=== PATIENT | male | born 1995 | race Caucasian/White ===

== ENCOUNTER → 2019-01-12 17:03 | Outpatient (CLI) | payer OTHER, SELFPAY ==
--- NOTE | 2019-01-12 17:11 | RAD_ITS ---
STUDY: X-RAY - UNILATERAL RIBS ( LEFT ) WITH CHEST REASON FOR EXAM: Male, 23 years old. Left rib pain, chest pain TECHNIQUE - RIBS: 5 view(s) of the ribs. TECHNIQUE - CHEST: PA chest COMPARISON: None. FINDINGS - RIBS: Normal visualized ribs without a demonstrated fracture. FINDINGS - CHEST: The lungs are clear and expanded. There is no demonstrated pleural abnormality. Normal size heart. Normal mediastinum and rolando. Normal visualized pulmonary arteries. Normal visualized aortic arch and descending thoracic aorta. There is mild upper thoracic dextroscoliosis.. Normal visualized ribs, clavicles, and shoulders. There is no demonstrated abnormality of the visualized soft tissue structures of the upper abdomen. RAD/Ribs Uni Min 3V w/PA Chest IMPRESSION: RIBS: Normal x-ray examination of the ribs. CHEST: Normal x-ray examination of the chest. Mild upper thoracic dextroscoliosis Electronically Signed: Sachin Jeff, at 17:47 EDT Tel , Service support ,
== END ==
PROVIDERS: Family Provider Physician Assistant; PCP Physician Assistant; Referring Provider Physician Assistant; Visit Provider Physician Assistant
DX: R07.81 Pleurodynia (principal)
CPT/HCPCS: 71101

== ENCOUNTER 2019-03-14 12:18 | Emergency (ER) | payer OTHER, SELFPAY ==
[2019-03-14 12:19] VITALS: BP 168/92; PULSE 76; RESP 18; TEMP 36.8; O2SAT 99; BMI 26.4
--- NOTE | 2019-03-14 12:53 | RAD_ITS ---
STUDY: X-RAY CHEST REASON FOR EXAM: Male, 23 years old. Chest pain TECHNIQUE: Single AP portable view of the chest. COMPARISON: 01/12/2019. FINDINGS: The lungs are clear and expanded. There is no demonstrated pleural abnormality. Normal size heart. Normal mediastinum and rolando. Normal visualized pulmonary arteries. Normal visualized aortic arch and descending thoracic aorta. Normal visualized thoracic spine. Normal visualized ribs, clavicles, and shoulders. There is no demonstrated abnormality of the visualized soft tissue structures of the upper abdomen. RAD/Chest 1 View (Portable) IMPRESSION: Normal x-ray examination of the chest. No acute intrathoracic process. Electronically Signed: Yomi Torres MD at 13:27 EDT Tel [phone], Service support ,
--- NOTE | 2019-03-14 12:54 | EKG12_ITS ---
Test Reason : CP Blood Pressure : / mmHG Vent. Rate : 075 BPM Atrial Rate : 075 BPM P-R Int : 146 ms QRS Dur : 106 ms QT Int : 374 ms P-R-T Axes : 055 077 041 degrees QTc Int : 417 ms Normal sinus rhythm Incomplete right bundle branch block Borderline ECG Confirmed by JAYANT MENDEZ ([id number]), international editorial producer MAU SAMUEL ([id number]) on 03/20/2019 2:21:14 PM Referred By: Confirmed By:JAYANT MENDEZ
[2019-03-14 13:00] LABS: Absolute Lymphocyte Count 1.91 X10^3/uL (0.83-4.51); Absolute Neutrophil Count 6.1 X10^3/uL (2.0-7.7); Basophil# 0.02 X10^3/uL; Basophil% 0.2 % (0-1); Eosinophil# 0.15 X10^3/uL; Eosinophils% 1.7 % (0-5); Hematocrit 45.6 % (40-54); Hemoglobin 15.8 g/dL (13.0-16.5); Lymphocyte # 1.91 X10^3/ul (4.0); Lymphocyte % 21.1 % (19-41); Mean Corp Hgb Conc 34.6 g/dL (32-36); Mean Corpuscular Hgb 30.2 pg (27.0-32.0); Mean Corpuscular Volume 87.2 fL (80-94); Mean Platelet Vol. 9.7 fl (6.2-12.0); Monocyte# 0.83 X10^3/uL; Monocyte% 9.2 % (0-10); NRBC Flagged by Analyzer 0 % (0-5); Neutrophil # 6.14 X10^3/uL (2.7-7.7); Neutrophil % 67.6 % (47-70); Platelet Count 263 K/mm3 (150-450); RBC Distribution Width SD 41.4 fl (35.1-43.9); Red Blood Count 5.23 M/mm3 (4.6-6.2); White Blood Count 9.1 K/mm3 (4.4-11.0)
[2019-03-14 13:04] VITALS: BP 133/94; PULSE 73; RESP 19; O2SAT 98
--- NOTE | 2019-03-14 13:05 | NURSING ---
NO OLD EKG TO OBTAIN
[2019-03-14] MEDS: Aspirin 81 MG TAB.CHEW 324 MG PO (13:06)
[2019-03-14 13:13] LABS: Anion Gap 5 (5-15); BUN 11 mg/dL (7-18); BUN/Creat Ratio 11.9 RATIO (10-20); Calcium,Total 9.4 mg/dL (8.5-10.1); Chloride 107 mmol/L (98-107); Creatinine, Serum 0.93 mg/dL (0.70-1.30); EST Glomerular Filtration Rate 108 mL/min (>60); Est Glom Filt Rate - Afr Amer 130 mL/min (>60); Estimated Creatinine Clearance 136.75 ml/min; Glucose 107 mg/dL (74-106); Potassium 3.4 mmol/L (3.5-5.1); Sodium Level 139 mmol/L (136-145)
[2019-03-14 14:10] VITALS: BP 124/74; PULSE 66; RESP 19; O2SAT 99
--- NOTE | 2019-03-14 14:22 | ED.DCSUM_ITS ---
- ER Visit Summary Date of Service: 03/14/19 Chief Complaint: Chest pain History of Present Illness: The patient is a 23 M who presents with chest pain that began last night. Patient states he was snorting cocaine last night when the pain began. Patient states the pain is been waxing and waning throughout the day. Patient describes as aching. Patient states the pain is over the substernal area but radiates into his left arm. Patient states nothing makes it better or worse. Patient states he had some shortness of breath and broke out into a sweat but currently denies any diaphoresis or dyspnea. Patient states he felt lightheaded and felt like he was going to pass out immediately after snorting the cocaine. Patient states he felt like his heart was racing after that. Patient states he had some tingling in his left toes and some pain in his left scapular area. Patient denies any nausea or vomiting. Patient denies any cardiac or PE risk factors. Physical Examination: Vital signs are stable. Patient is afebrile. Patient is in no acute distress. Oral mucosa is pink and moist. Neck is supple. Trachea is midline. There is no JVD noted. Heart was regular rate and rhythm. Lungs are clear and equal bilateral. Abdomen is soft. Bowel sounds are normal. Ther e is no tenderness. There is no guarding noted. Skin is warm dry. Cranial nerves II through XII are intact. There are no focal motor or sensory deficits noted. The remaining physical exam is within normal limits. Test Results: EKG showed normal sinus rhythm with a rate of 75. There is an incomplete right bundle branch block pattern. There are no acute ST or T wave changes. CBC, basic metabolic profile, and troponin were obtained and were normal. Portable chest x-ray was obtained. There is no acute cardiopulmonary process. Emergency Department Course and Treatment: Patient was given aspirin here. Patient is feeling better on reevaluation. Patient has a HEART score of 1. Patient was advised this is low risk for acute cardiac event. Patient was instructed to stop using cocaine. Patient was instructed to follow-up with his primary care physician in 5 to 7 days. Patient was instructed return if worse in any way. Patient understood and was agreeable with the plan. All questions were answered. Disposition: Discharge home Impression: Chest pain This note was generated with Wibki dictation software. It may contain incorrect words, spelling, and punctuation that were not noted in review of the chart prior to signing ED Disposition - Plan for ED Patient: Disposition: Home or Assisted Living Diagnosis: Chest pain Instructions: CHEST PAIN, Uncertain Cause Referrals: Care Physician,No Primary [Primary Care Provider] - Devon Berry MD [NON-STAFF] - 5-7 Days
[2019-03-14 14:41] VITALS: BP 130/78; PULSE 82; RESP 17; O2SAT 100
== END 2019-03-14 14:44 | disposition home or self-care (01) ==
PROVIDERS: Emergency Provider Emergency Medicine
DX: R07.9 Chest pain, unspecified (principal); R06.02 Shortness of breath; M54.2 Cervicalgia; F17.290 Nicotine dependence, other tobacco product, uncomplicated
CPT/HCPCS: 71045; 80048; 84484; 85025; 93005; 99285; A4216

== ENCOUNTER 2024-11-05 18:45 | Emergency (ER) | payer OTHER, SELFPAY ==
[2024-11-05] VITALS (9 sets, daily range): BP systolic 128–161; BP diastolic 67–129; PULSE 70–118; RESP 15–24; TEMP 36–36.6; O2SAT 20–100
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
[2024-11-05] MEDS: Ondansetron 4 MG/2 ML Vial IV (19:12)
[2024-11-05] MEDS: Morphine 4 MG/ML Syringe IV (19:12)
--- NOTE | 2024-11-05 19:29 | CT_ITS ---
PROCEDURE: SPINE CERVICAL WITHOUT CONTRAS 11/05/2024 REASON FOR EXAM: Pain, trauma TECHNIQUE: Cervical spine CT without contrast. Coronal and Sagittal reconstruction series were provided. One or more dose reduction techniques were used (e.g., Automated exposure control, adjustment of the mA and/or kV according to patient size, use of iterative reconstruction technique COMPARISON: None FINDINGS: Vertebral body heights are maintained. Negative for fracture or traumatic subluxation. No significant degenerative changes. Lung apices are clear. No paraspinal mass. CT/Spine Cervical without Contras IMPRESSION: No acute osseous abnormality. Reading Location: [facility]
--- NOTE | 2024-11-05 19:29 | CT_ITS ---
PROCEDURE: BRAIN/HEAD WITHOUT CONTRAST 11/05/2024 REASON FOR EXAM: Pain, trauma TECHNIQUE: Head CT without intravenous contrast. Coronal and Sagittal reconstruction series were provided. One or more dose reduction techniques were used (e.g., Automated exposure control, adjustment of the mA and/or kV according to patient size, use of iterative reconstruction technique. COMPARISON: None FINDINGS: No evidence of acute intracranial hemorrhage, midline shift or mass effect. No definite CT evidence of acute territorial cortical infarction. No hydrocephalus. Cerebral volume is preserved. No depressed calvarial fracture. Minimal ethmoid sinus mucosal thickening. Mastoid air cells are clear. CT/Brain/Head without Contrast IMPRESSION: No acute intracranial abnormality. Reading Location: [facility]
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
--- NOTE | 2024-11-05 19:30 | RAD_ITS ---
EXAM: Left elbow radiographs CLINICAL HISTORY: Pain COMPARISON: None TECHNIQUE: Three views of the left elbow FINDINGS: See impression RAD/Elbow min 3 Views IMPRESSION: Negative for acute fracture or malalignment. No significant joint effusion. Reading Location: [facility]
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
[2024-11-05] MEDS: fentaNYL 100 MCG/2 ML Ampul 50 MCG IV (20:22)
[2024-11-05] MEDS: Propofol 200 MG/20 ML Vial IV BOLUS (20:22)
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
[2024-11-05] MEDS: oxyCODONE 5 MG Tablet PO (22:17)
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
== END 2024-11-05 22:28 | disposition home or self-care (01) ==
PROVIDERS: Emergency Provider Surgery; Visit Provider Surgery
DX: S43.015A Anterior dislocation of left humerus, initial encounter (principal); S42.292A Other displaced fracture of upper end of left humerus, initial encounter for closed fracture; S01.01XA Laceration without foreign body of scalp, initial encounter; S81.012A Laceration without foreign body, left knee, initial encounter; S20.311A Abrasion of right front wall of thorax, initial encounter; S80.212A Abrasion, left knee, initial encounter; V86.05XA Driver of 3- or 4- wheeled all-terrain vehicle (ATV) injured in traffic accident, initial encounter; F17.210 Nicotine dependence, cigarettes, uncomplicated; Z23 Encounter for immunization
CPT/HCPCS: 23665; 12001; 70450; 72125; 73030; 73080; 73200; 90715; 96374; 96375; 99152; 99285; A4216; J2405